=== PATIENT | female | born 1980 | race Caucasian/White ===

== ENCOUNTER 2016-09-28 21:56 | Emergency (ER) | payer BC ==
[2016-09-28] MEDS ORDERED: Sodium Chloride 0.9% 10 ML Syringe FLUSH PRN (21:59)
[2016-09-28] MEDS ORDERED: Ondansetron 4 MG Tab.DIS PO ONE (21:59)
[2016-09-28] MEDS ORDERED: Sodium Chloride 0.9% 1,000 ML IV SCH (22:00)
--- NOTE | 2016-09-28 22:03 | EDM.PDOC ---
ED HPI GENERAL MEDICAL PROBLEM - General Chief Complaint: Gastrointestinal Problem Stated Complaint: abdominal pain since 1230 Time Seen by Provider: 09/28/16 21:57 Source of Information: Reports: Patient History Limitations: Reports: No Limitations - History of Present Illness INITIAL COMMENTS - FREE TEXT/NARRATIVE: Patient reports feeling ill with abdominal pain since a "fatty" meal at lunch time. She has tried some tylenol with no relief. States she has felt this off and on since Monday. Has felt like having either diarrhea or vomiting but has had neither. She denies fever, no chest pain, no shortness of breath, no dizziness, no headaches. Urinary and bowel habits are normal with no blood. Last menstrual cycle started on 09/18. No history of ovarian cysts, endometriosis, IBS, colitis, crohns. No other complaints. Onset Date: 09/25/16 Location: Reports: Abdomen Severity: Moderate Improves with: Reports: None Worsens with: Reports: Eating Associated Symptoms: Reports: No Other Symptoms Treatments RISK COMPLIANCE MANAGER: Reports: Acetaminophen - Related Data Allergies Allergy/AdvReac Type Severity Reaction Status Date / Time No Known Allergies Allergy Verified 09/28/16 21:57 Home Meds: Home Meds . [No Known Home Meds] 09/28/16 [History] ED ROS GENERAL - Review of Systems Review Of Systems: See Below Constitutional: Reports: No Symptoms HEENT: Reports: No Symptoms Respiratory: Reports: No Symptoms Cardiovascular: Reports: No Symptoms Endocrine: Reports: No Symptoms GI/Abdominal: Reports: Abdominal Pain, Nausea : Reports: No Symptoms Musculoskeletal: Reports: No Symptoms Skin: Reports: No Symptoms Neurological: Reports: No Symptoms Psychiatric: Reports: No Symptoms Hematologic/Lymphatic: Reports: No Symptoms Immunologic: Reports: No Symptoms ED EXAM, GI/ABD - Physical Exam Exam: See Below Exam Limited By: No Limitations General Appearance: Alert, WD/WN, No Apparent Distress Eyes: Bilateral: EOMI Ears: Normal TMs Head: Atraumatic, Normocephalic Neck: Normal Inspection, Supple, Non-Tender, Full Range of Motion Respiratory/Chest: No Respiratory Distress, Lungs Clear, Normal Breath Sounds, No Accessory Muscle Use, Chest Non-Tender Cardiovascular: Normal Peripheral Pulses, Regular Rate, Rhythm, No Edema GI/Abdominal Exam: Normal Bowel Sounds, Soft, No Distention, No Abnormal Bruit, No Mass, Pelvis Stable, Tender (epigastric) Extremities: Normal Inspection, Normal Range of Motion, Non-Tender, No Pedal Edema, Normal Capillary Refill Neurological: Alert, Oriented, CN II-XII Intact, Normal Cognition, Normal Gait, Normal Reflexes, No Motor/Sensory Deficits Psychiatric: Normal Affect, Normal Mood Skin Exam: Warm, Dry, Intact, Normal Color, No Rash Lymphatic: No Adenopathy Course - Radiology Interpretation Free Text/Narrative:: CT negative for any acute findings Departure - Departure Time of Disposition: 00:04 Disposition: Home, Self-Care 01 Condition: Good Clinical Impression: Pyelonephritis - Discharge Information Instructions: Abdominal Pain, Adult, [id number], Pyelonephritis, Adult, Easy- to-Read Additional Instructions: Stay hydrated Finish your course of antibiotics even if you feel better Establish with a primary care provider No acute findings in your CT scan Urine sample showed WBC's, mucous, blood, leukocytes Please call with any questions or concerns - Problem List & Annotations (1) Pyelonephritis SNOMED Code(s): 16032150 Code(s): N12 - TUBULO-INTERSTITIAL NEPHRITIS, NOT SPCF ACUTE OR CHRONIC Status: Acute Priority: Low Current Visit: Yes - Problem List Review Problem List Initiated/Reviewed/Updated: Yes - Assessment/Plan Assessment:: pyelonephritis Plan: Stay hydrated Finish your course of antibiotics even if you feel better Establish with a primary care provider No acute findings in your CT scan Urine sample showed WBC's, mucous, blood, leukocytes Please call with any questions or concerns
[2016-09-28] MEDS ORDERED: Iopamidol 612 MG/ML 100 ML Bottle IVPUSH ONE (22:33)
[2016-09-28 22:43] LABS: CHLORIDE,CL 106 mmol/L (98-107); SODIUM,NA 140 mmol/L (136-145)
[2016-09-28] MEDS ORDERED: Sodium Chloride 0.9% 100 ML IV SCH (22:45)
[2016-09-28] MEDS ORDERED: Ciprofloxacin 500 MG Tab PO ONE (23:57)
[2016-09-29] MEDS ORDERED: Take Home: Ciprofloxacin 500 MG Tab, 2 Tab Pack ONE (00:11)
== END 2016-09-29 00:13 | disposition home or self-care (01) ==
LOC: VM.ED 21:56
DX: N12 Tubulo-interstitial nephritis, not specified as acute or chronic (principal)
CPT/HCPCS: 36415; 74177; 80053; 81001; 81025; 85025; 86140; 96361; 96374; 99284; A9270; J7030; J7050; Q9967

== ENCOUNTER 2019-12-04 18:51 | Emergency (ER) | payer BC ==
--- NOTE | 2019-12-04 19:27 | EDM.PDOC ---
ED HPI GENERAL MEDICAL PROBLEM - General Stated Complaint: cough Time Seen by Provider: 12/04/19 19:15 Source of Information: Reports: Patient History Limitations: Reports: No Limitations - History of Present Illness INITIAL COMMENTS - FREE TEXT/NARRATIVE: Patient comes emergency department today with complaints of cough scratchy throat and just not feeling well. Since Monday the patient has had somewhat of an increased cough. She does have some fatigue and malaise. Maybe some chills no body aches. She checked her temperature at home that was 99 2. She has a tickle in her throat. She has no loss of taste or smell. No diarrhea. No abdominal pain. No shortness of breath difficulty breathing. No chest pain palpitations or syncope. Is not been exposed to anyone that she is aware of that has had COVID. frontal headache Pain Score (Numeric/FACES): 3 - Related Data Allergies Allergy/AdvReac Type Severity Reaction Status Date / Time No Known Allergies Allergy Verified 12/04/19 21:15 Home Meds: Home Meds . [No Known Home Meds] 09/28/16 [History] Past Medical History - Past Surgical History Female Surgical History: Reports: Section ED ROS ENT - Review of Systems Review Of Systems: Comprehensive ROS is negative, except as noted in HPI. ED EXAM, ENT - Physical Exam Exam: See Below Exam Limited By: No Limitations General Appearance: Alert, WD/WN, No Apparent Distress Eye Exam: Bilateral Eye: EOMI, PERRL Ears: Normal External Exam, Normal TMs Nose: Normal Inspection, Normal Mucousa, No Blood Mouth/Throat: Normal Inspection, Normal Gums, Normal Teeth Head: Atraumatic, Normocephalic Neck: Normal Inspection, Supple, Non-Tender, Full Range of Motion Respiratory/Chest: No Respiratory Distress, Lungs Clear, Normal Breath Sounds, No Accessory Muscle Use, Chest Non-Tender Cardiovascular: Normal Peripheral Pulses, Regular Rate, Rhythm GI/Abdominal: Normal Bowel Sounds, Soft, Non-Tender (Female) Exam: Deferred Rectal (Female) Exam: Deferred Back: Normal Inspection, Full Range of Motion Extremities: Normal Inspection, Normal Range of Motion Neurological: Alert, Oriented, Normal Cognition, No Motor/Sensory Deficits Psychiatric: Normal Affect, Normal Mood Skin: Warm, Dry, Intact, Normal Color, No Rash Course - Vital Signs Last Recorded V/S: Last Vital Signs Temp 97.7 F 10/14/20 19:15 Pulse 84 12/04/19 19:15 Resp 16 12/04/19 19:15 BP 141/90 H 12/04/19 19:15 Pulse Ox 95 12/04/19 19:15 - Orders/Labs/Meds Labs: Laboratory Tests 12/04/19 Range/Units 18:55 SARS CoV-2 RNA Rapid STONE Positive H (NEGATIVE) - Re-Assessments/Exams Free Text/Narrative Re-Assessment/Exam: 12/04/19 COVID test is actually surprisingly positive. She is in no respiratory distress. She is not requiring any oxygen to keep her saturation elevated. We discussed the importance of quarantining and her risk staying home until she is 72 hours of symptom-free. She needs to have her close contact such as family and coworkers also quarantine for 14 days. I will treat her with vitamin C zinc and vitamin D. Increase fluids symptomatic management otherwise. Talked about the importance of her rechecking if she is having severe respiratory distress unable to control her fever keep fluids down. She is to contact any healthcare industry that she is coming into that she is positive for COVID. Her questions are answered and she is comfortable with this plan. Departure - Departure Time of Disposition: 19:21 Disposition: Home, Self-Care 01 Clinical Impression: COVID-19 - Discharge Information Instructions: COVID-19 Frequently Asked Questions, COVID-19: How to Protect Yourself and Others - CDC, Prevent the Spread of COVID-19 if You Are Sick - CDC Referrals: PCP,None [Primary Care Provider] - Additional Instructions: Tylenol and or Ibuprofen as needed for pain fever discomfort. Push oral fluids over the next few days. Quarantine yourself and your close contacts. You will be contacted by the state contact tracers. Vitamin C 500mg twice daily. Zinc 50mg Daily Vit D 3 5,000 units daily. Return if unable to control fever severe shortness of breath or worsening EMERGENT symptoms. Recheck in the clinic if any concerns. Contact the health care group that you are going into on the phone prior to presentation to ensure they are prepared for you. Sepsis Event Note (ED) - Focused Exam Vital Signs: Vital Signs Temp Pulse Resp BP Pulse Ox 12/04/19 19:15 97.7 F 84 16 141/90 H 95
== END 2019-12-04 19:30 | disposition home or self-care (01) ==
LOC: VM.ED 18:51
DX: U07.1 COVID-19 (principal)
CPT/HCPCS: 99283; 99284; U0002